=== PATIENT | male | born 1975 | race Two or more races ===

== ENCOUNTER 2022-05-14 06:37 | Emergency (ER) | payer SELFPAY ==
[~2022-05-14] VITALS: Ht 175.3 cm; Wt 113.4 kg
--- NOTE | 2022-05-14 06:54 | NUR ---
BIBSELF FROM HOME C/O ABD PAIN SINCE X1 NIGHT, CONSTIPATION FOR 3 DAYS +N/V. PT A/OX4. TOLERATING R/A WELL WITH NO RESP DISTERSS. SAFETY MEASURES IN PLACE.
--- NOTE | 2022-05-14 06:54 | NUR ---
DR. VINCENT COLLAZO AT PT'S BEDSIDE FOR EVAL
[2022-05-14] MEDS ORDERED: ONDANSETRON HCL/PF 4 MG/2 ML VIAL ONE (06:59)
[2022-05-14] MEDS ORDERED: ONDANSETRON HCL/PF 4 MG/2 ML VIAL IVP ONE (07:00)
[2022-05-14] MEDS ORDERED: IV NS 0.9% 1,000 ML BAG IV ONE (07:00)
--- NOTE | 2022-05-14 07:04 | NUR ---
PROVIDED PT WITH URINE CUP; AWAITING URINE SAMPLE.
--- NOTE | 2022-05-14 07:04 | NUR ---
IV LAC #18G S/L BLOOD COLLECTED AND SENT TO LAB
--- NOTE | 2022-05-14 07:07 | NUR ---
JULIO BARAJAS [address]
[2022-05-14] MEDS ORDERED: MORPHINE SULFATE INJ 4 MG/ML DISP.SYRIN ONE (07:11)
--- NOTE | 2022-05-14 07:20 | NUR ---
RECEIVED PT FROM RIGOBERTO RN PT AWAKE AND ALERT RESPIRATION SPONT AND EASY
--- NOTE | 2022-05-14 07:21 | NUR ---
PT TAKEN TO CT VIA MORE
[2022-05-14] MEDS ORDERED: FAMOTIDINE/PF INJ 20 MG/2 ML VIAL IV ONE ×2 (07:30→08:43)
[2022-05-14] MEDS ORDERED: MAG HYDROX/AL HYDROX/SIMETH 30 ML UDC PO ONE (07:30)
[2022-05-14] MEDS ORDERED: LIDOCAINE VISCOUS 2% UD 15 ML UDC MM ONE (07:30)
[2022-05-14] MEDS ORDERED: MORPHINE SULFATE INJ 2 MG/ML DISP.SYRIN IV ONE (07:30)
[2022-05-14 07:32] LABS: CALCIUM, SERUM 8.8 mg/dL (8.5-10.1); POTASSIUM 3.4 mmol/L (3.5-5.1)
[2022-05-14 07:33] LABS: BASOPHILS % (AUTO) 0.5 % (0.0-2.0); EOSINOPHILS % (AUTO) 2.6 % (0.0-6.0); HEMATOCRIT 46 % (39-51); HEMOGLOBIN 15.8 g/dL (13.5-17.5); LYMPHOCYTES # (AUTO) 1.6 K/uL (0.8-4.8); LYMPHOCYTES % (AUTO) 25.8 % (20.0-44.0); MEAN CORPUSCULAR HGB CONC 35 g/dl (31.0-36.0); MEAN CORPUSCULAR VOLUME 88 fL (80-96); MONOCYTES # (AUTO) 0.5 K/uL (0.1-1.30); MONOCYTES % (AUTO) 8.6 % (2.0-12.0); NEUTROPHILS # (AUTO) 3.8 K/uL (1.8-8.9); NEUTROPHILS % (AUTO) 62.5 % (43.0-81.0); PLATELET COUNT (AUTO) 152 K/uL (150-450); RED BLOOD CELL COUNT(AUTO) 5.16 MIL/uL (4.5-6.0); WHITE BLOOD COUNT (AUTO) 6.1 K/uL (4.3-11.0)
[2022-05-14 07:38] LABS: ALBUMIN 3.4 g/dL (3.4-5.0); BILIRUBIN,DIRECT 0.1 mg/dL (0.0-0.2); BILIRUBIN,TOTAL 0.3 mg/dL (0.2-1.0); TOTAL PROTEIN, SERUM 7.5 g/dL (6.4-8.2)
--- NOTE | 2022-05-14 08:30 | NUR ---
UA SENT TO LAB
[2022-05-14] MEDS ORDERED: FAMO-131 PO (08:41)
[2022-05-14] MEDS ORDERED: ONDA4TAB5 PO (08:41)
--- NOTE | 2022-05-14 08:50 | NUR ---
IV removed. Catheter intact and site benign. Pressure and 4x4 applied to site. No bleeding noted.
--- NOTE | 2022-05-14 08:54 | NUR ---
Patient discharged to home in stable condition. Written and verbal after care instructions given. Patient verbalizes understanding of instruction.
--- NOTE | 2022-05-14 08:55 | NUR ---
RESTING AND COMFORTABLE DINESES ABDOMINAL PAIN
[2022-05-14 09:01] VITALS: BP 141/66
[2022-05-14 10:35] LABS: BILIRUBIN,URINE NEGATIVE (NEGATIVE); COLOR,URINE YELLOW (YELLOW); LEUKOCYTE ESTERASE ,URINE NEGATIVE (NEGATIVE); NITRITE, URINE NEGATIVE (NEGATIVE); PROTEIN,URINE TRACE mg/dl (NEGATIVE); UGLUCOSE TRACE mg/dL (NEGATIVE); UROBILINOGEN,URINE 0.2 EU/dL (0.2)
[2022-05-14 10:59] LABS: BACTERIA,URINE Few /HPF (None Seen); SQUAMOUS EPITHELIAL CELL,UR Few /HPF (None Seen); WBC,URINE 0-2 /HPF (0-3)
[2022-05-14 11:00] LABS: CALCIUM OXALATE CRYSTALS,UR Few /HPF (None Seen)
== END 2022-05-14 09:38 | disposition home or self-care (01) ==
LOC: ER 06:39
DX: E11.65 Type 2 diabetes mellitus with hyperglycemia (principal); R10.13 Epigastric pain; R11.2 Nausea with vomiting, unspecified; I10 Essential (primary) hypertension; Z60.2 Problems related to living alone
CPT/HCPCS: 99285; 74176; 96374; 96375; 96361; 85025; 80048; 83690; 80076; 81001; 36415; 82962; J2270; J3490; J2405; J7030

== ENCOUNTER 2025-03-08 00:34 | Emergency (ER) | payer MEDICAID ==
[~2025-03-08] VITALS: Ht 177.8 cm; Wt 86.2 kg
[~2025-03-08 00:34] MED LIST: FAMO-131 PO; ONDA4TAB5 PO
[2025-03-08] MEDS ORDERED: INSULIN REGULAR, HUMAN 100 UNIT/ML 10 ML VIAL ONE (01:12)
[2025-03-08 01:26] LABS: PLATELET COUNT (AUTO) 134 K/uL (150-450); RED BLOOD CELL COUNT(AUTO) 5.09 MIL/uL (4.5-6.0); RED CELL DISTRIBUTION WIDTH 13.5 % (11.5-15.0); WHITE BLOOD COUNT (AUTO) 6.7 K/uL (4.3-11.0)
[2025-03-08] MEDS: IV NS 0.9% 1,000 ML BAG IV ONE ×2 (01:26→04:18)
[2025-03-08 01:30] LABS: APPEARANCE,URINE CLEAR (CLEAR); BLOOD, URINE TRACE-INTA Ery/uL (NEGATIVE); LEUKOCYTE ESTERASE ,URINE NEGATIVE (NEGATIVE); NITRITE, URINE NEGATIVE (NEGATIVE); UGLUCOSE 3+ mg/dL (NEGATIVE)
[2025-03-08] MEDS: INSULIN REGULAR, HUMAN 100 UNIT/ML 10 ML VIAL IV ONE (01:31)
[2025-03-08 01:33] LABS: ADD URINE CULTURE NO; SQUAMOUS EPITHELIAL CELL,UR None Seen /HPF (None Seen)
[2025-03-08 01:47] LABS: ABG BASE EXCESS 2.0 mmol/L (-2.0-3.0); ABG OXYGEN SATURATION 96.0 % (94.0-98.0); ABG PCO2 41.7 mmHg (35.0-48.0); ABG PH 7.424 (7.350-7.450); ABG PO2 80.3 mmHg (83.0-108.0); ABG TOTAL HEMOGLOBIN 16.7 G/dL (13.5-17.5); SITE, ABG RIGHT BRACHIAL
[2025-03-08 01:47] LABS: CALCIUM, SERUM 8.7 mg/dL (8.5-10.1); CREATININE 1.0 mg/dL (0.6-1.3); SODIUM SERUM 140.0 mmol/L (136-145); UREA NITROGEN, BLOOD 13.0 mg/dL (7-18)
[2025-03-08 01:53] LABS: ASPARTATE AMINOTRANSFERASE 33.0 U/L (15-37); TOTAL PROTEIN, SERUM 6.9 g/dL (6.4-8.2)
[2025-03-08] MEDS ORDERED: LIDOCAINE 2% JEL UROJET 10 ML MM ONE (04:04)
[2025-03-08 06:25] VITALS: BP 130/90; TEMP 98; O2SAT 99
== END 2025-03-08 06:25 | disposition home or self-care (01) ==
LOC: ER 00:40
DX: E11.65 Type 2 diabetes mellitus with hyperglycemia (principal); I10 Essential (primary) hypertension; Z60.2 Problems related to living alone; Z91.148 Patient's other noncompliance with medication regimen for other reason
CPT/HCPCS: 99284; 96374; 96361; 71045; 82803; 85025; 80048; 82010; 80076; 81001; 36415; 82962 ×5; 36600; J1815; J3490; J7030